=== PATIENT | male | born 1965 | race Caucasian/White ===

== ENCOUNTER 2019-03-23 16:25 | Emergency (ER) | payer BC, MEDICARE, OTHER ==
--- NOTE | 2019-03-23 16:49 | EDM.PDOC ---
ED HPI GENERAL MEDICAL PROBLEM - General Chief Complaint: Burn Stated Complaint: BURN TO L FOOT Time Seen by Provider: 03/23/19 16:30 Source of Information: Reports: Patient History Limitations: Reports: No Limitations - History of Present Illness INITIAL COMMENTS - FREE TEXT/NARRATIVE: 53 YO WM presents to ER with pain to left foot from steam related burn. Pt reports he was using a steam hammer operator and accidentally used it across his left foot. Pt reports he was wearing boots but the hot water got through is shoe and caused a burn to his toes and distal portion of his metacarpals on the dorsal side of the foot. Pt denies any other injury. Pt with history of kidney transplant on antirejection medication. Onset: Today Duration: Hour(s): (1) Location: Reports: Lower Extremity, Left Quality: Reports: Burning Severity: Moderate Improves with: Reports: None Worsens with: Reports: None Associated Symptoms: Reports: No Other Symptoms Treatments CHICKEN SEXER: Reports: NSAIDS - Related Data Home Meds: Home Meds Silver Sulfadiazine [Silvadene 1% Cream 25 GM] 1 applic TOP TID #25 tube [Rx] Sulfamethoxazole/Trimethoprim [Septra DS] 1 each PO BID #16 tab 03/23/19 [Rx] ED ROS GENERAL - Review of Systems Review Of Systems: See Below Constitutional: Reports: No Symptoms HEENT: Reports: No Symptoms Respiratory: Reports: No Symptoms Cardiovascular: Reports: No Symptoms Endocrine: Reports: No Symptoms GI/Abdominal: Reports: No Symptoms : Reports: No Symptoms Musculoskeletal: Reports: No Symptoms Skin: Reports: Burn(s) (2nd degree burn to dorsal aspect of distal left foot and toes) Neurological: Reports: No Symptoms Psychiatric: Reports: No Symptoms Hematologic/Lymphatic: Reports: No Symptoms Immunologic: Reports: No Symptoms ED EXAM, BURN/SMOKE INHALATION - Physical Exam Exam: See Below Exam Limited By: No Limitations General Appearance: Alert, WD/WN, No Apparent Distress Head: No Symptoms Neck: No Symptoms Respiratory: No Respiratory Distress, Lungs Clear, Normal Breath Sounds, No Accessory Muscle Use, Chest Non-Tender Cardiovascular: Normal Peripheral Pulses, Regular Rate, Rhythm, No Edema, No Gallop, No JVD, No Murmur, No Rub GI/Abdominal: Normal Bowel Sounds, Soft, Non-Tender, No Organomegaly, No Distention, No Abnormal Bruit, No Mass Back Exam: Normal Inspection, Full Range of Motion, NT Extremities: Leg Pain Neurological: Alert, Oriented, CN II-XII Intact, Normal Cognition, Normal Gait, Normal Reflexes, No Motor/Sensory Deficits Psychiatric: Normal Affect, Normal Mood Skin Exam: Erythema, Increased Warmth, Other (2nd degree burn to dorsal aspect of distal left foot and toes) Lymphatic: No Adenopathy Departure - Departure Time of Disposition: 17:00 Disposition: Home, Self-Care 01 Condition: Good Clinical Impression: Second degree burn of left foot Qualifiers: Encounter type: initial encounter Qualified Code(s): T25.222A - Burn of second degree of left foot, initial encounter - Discharge Information Prescriptions: Silver Sulfadiazine [Silvadene 1% Cream 25 GM] 1 applic TOP TID #25 tube Sulfamethoxazole/Trimethoprim [Septra DS] 1 each PO BID #16 tab Instructions: Burn Care, Adult Referrals: Tanya Dockery MD [Physician] - Forms: ED Department Discharge Additional Instructions: 1. discharge home 2. wound care instructions given- 3. hydrocodone 10/325 #6 1 every 6 hours as needed for pain 4. septra DS 1 tablet twice day x 10 days 5. silvadene to burn 6. follow up this week for recheck in clinic with PCP 7. return to ER for worsening symptoms - Assessment/Plan Assessment:: 1. 2nd degree burn to dorsal aspect of distal left foot and toes Plan: 1. discharge home 2. wound care instructions given- 3. hydrocodone 10/325 #6 1 every 6 hours as needed for pain 4. septra DS 1 tablet twice day x 10 days 5. silvadene to burn 6. follow up this week for recheck in clinic with PCP 7. return to ER for worsening symptoms
[2019-03-23] MEDS ORDERED: Sulfamethoxazole/Trimethoprim 800-160 MG Tab PO ONE (16:50)
[2019-03-23] MEDS ORDERED: Acetaminophen/HYDROcodone 325-10 MG Tab PO ONE (16:50)
[2019-03-23] MEDS ORDERED: Silver Sulfadiazine 1% Crm 50 GM Tube TOP ONE (16:53)
== END 2019-03-23 17:35 | disposition home or self-care (01) ==
LOC: KA.ED 16:25
DX: T25.222A Burn of second degree of left foot, initial encounter (principal); T25.232A Burn of second degree of left toe(s) (nail), initial encounter; T31.0 Burns involving less than 10% of body surface; X13.1XXA Other contact with steam and other hot vapors, initial encounter
CPT/HCPCS: 16020; 99283; A9270

== ENCOUNTER 2020-05-01 13:00 | Emergency (ER) | payer MEDICARE ==
--- NOTE | 2020-05-01 13:13 | EDM.PDOC ---
ED HPI GENERAL MEDICAL PROBLEM - General Chief Complaint: Gastrointestinal Problem Stated Complaint: NOT FEELING WELL Time Seen by Provider: 05/01/20 13:13 Source of Information: Reports: Patient History Limitations: Reports: No Limitations - History of Present Illness INITIAL COMMENTS - FREE TEXT/NARRATIVE: Camilo, 54-year-old male, presents today with general malaise weakness a ccompanied with watery stools. He had been seen on 08 April for a routine DOT physical and was found to be hypertensive not allowing completion of physical. At that time he was started on lisinopril hydrochlorothiazide at and was followed up on the at which time he received temporary clearance of his DOT with medication at that time changed to 40 of lisinopril and 25 of hydrochlorothiazide. He continued his Prograf 1 mg twice a day and his sildenafil citrate 100 mg as needed. He had had low-grade fevers and watery stools the past couple days with worsening of his malaise. He denies chest pain, shortness of breath but does have some cough. He denies abdominal pain, denies cramping, stating no change when experiencing a loose stool. Is unsure of the appearance of his urine as he is been in a seated position secondary of the watery stools and has had a mixture with stool unable to accurately visualize. He has had no issues with his liver transplant over the past 7 years with no alcohol no smoking. He has had no edema, no claudication but noted weakness in general, as well as denying any edema to the lower extremities. Has not been checking his blood sugars but did stop taking his metformin due to personal symptoms reasons. He underwent influenza testing which was negative on the as well as a COVID-19 screening which unfortunately cannot be traced down at the state at this time. We will likely be repeating that test for a rapid result secondary of his worsening symptoms and overall symptoms of illness. It is noted that he has not had his yearly [facility] follow-up secondary of COVID. He speaks of his significant other also feeling illness, he also underwent COVID screening but has not received results either. Onset: Gradual Duration: Day(s): Location: Reports: Abdomen, Generalized Generalized Pain Score (Numeric/FACES): 4 - Related Data Allergies Allergy/AdvReac Type Severity Reaction Status Date / Time No Known Drug Allergies Allergy Cannot Verified 03/24/19 19:21 Remember Home Meds: Home Meds Tacrolimus [Prograf] 1 mg PO BID 03/24/19 [History] Sildenafil [Viagra] 100 mg PO BEDTIME PRN 05/01/20 [History] hydroCHLOROthiazide [Hydrochlorothiazide] 25 mg PO DAILY 05/01/20 [History] lisinopriL [Lisinopril] 40 mg PO DAILY 05/01/20 [History] Past Medical History Cardiovascular History: Reports: Hypertension Respiratory History: Reports: None Gastrointestinal History: Reports: Other (See Below) (Previous C. difficile) Genitourinary History: Reports: Renal Disease Neurological History: Reports: None Psychiatric History: Reports: None Endocrine/Metabolic History: Reports: Diabetes, Type II Hematologic History: Reports: None Immunologic History: Reports: Solid Organ Transplant (Liver transplant 2012) Dermatologic History: Reports: Eczema - Infectious Disease History Infectious Disease History: Reports: Chicken Pox, Hepatitis C, Shingles - Past Surgical History GI Surgical History: Reports: Other (See Below) Other GI Surgeries/Procedures: LIVER TRANSPLANT IN 2012 Social & Family History - Family History Family Medical History: Noncontributory - Tobacco Use Tobacco Use Within Last Twelve Months: No Smoking Cessation Information Provided To Patient: No Second Hand Smoke Exposure: Yes Second Hand Smoke Education Provided: No - Living Situation & Occupation Living situation: Reports: with Significant Other Occupation: Employed ED ROS GENERAL - Review of Systems Review Of Systems: Comprehensive ROS is negative, except as noted in HPI. ED EXAM, GENERAL - Physical Exam Exam: See Below Free Text/Narrative:: Alert oriented x3 in general malaise type distress. HEENT shows some eczema to the forehead and the bridge of the nose with no other deformity. PERRLA no icterus no injection. Shows no evidence of photophobia. Neck is soft supple no rigidity generalized muscle aches to the neck shoulders and upper extremities. Thorax has fine rhonchi with a cough induced by deep inspiration and exhalation. Cardiac is S1-S2 I do not appreciate any murmur. Radial pulse correlates with apical heart rate. No tenderness to the chest wall. Bowel sounds are present, no mass no tenderness to palpation, no rebound tenderness. There is no pressure or pain over the urinary bladder. No flank pain to percussion but generalized muscle aches to motion and deep palpation of the chest wall and flank region. rectal was deferred. He moves extremities about with no difficulty there are no rashes, no edema with warm dry skin distally. Was advised of foregoing tests of blood work including a repeat of his COVID 19 as well as needing a stool sample in the event next bowel movement for C. difficile test as well as a urinalysis. Course - Vital Signs Last Recorded V/S: Last Vital Signs Temp 39.4 C H 05/01/20 20:30 Pulse 79 05/01/20 18:00 Resp 24 H 05/01/20 18:00 BP 127/86 05/01/20 18:00 Pulse Ox 94 L 05/01/20 18:00 - Orders/Labs/Meds Orders: Active Orders 24 hr Category Date Time Status Bladder Scan [RC] ASDIRECTED Care 05/01/20 17:25 Active Insert Urinary Catheter [OM.PC] Q24H Care 05/01/20 17:35 Ordered Peripheral IV Care [RC] . DIRECTED Care 05/01/20 13:22 Active Peripheral IV Care [RC] . DIRECTED Care 05/01/20 15:37 Active Urinary Catheter Assessment [RC] ASDIRECTED Care 05/01/20 18:08 Active Sodium Chloride 0.9% [Normal Saline] 1,000 ml Med 05/01/20 19:45 Active IV ASDIRECTED Sodium Chloride 0.9% [Saline Flush] Med 05/01/20 13:22 Active 10 ml FLUSH Q8HR PRN Sodium Chloride 0.9% [Saline Flush] Med 05/01/20 15:37 Active 10 ml FLUSH Q8HR PRN Peripheral IV Insertion Adult [OM.PC] Routine Oth 05/01/20 13:22 Ordered Peripheral IV Insertion Adult [OM.PC] Routine Oth 05/01/20 15:37 Ordered Medication Orders Sodium Chloride (Normal Saline) 1,000 mls @ 250 mls/hr IV ASDIRECTED WESLEY Sodium Chloride (Saline Flush) 10 ml FLUSH Q8HR PRN PRN Reason: keep vein open Sodium Chloride (Saline Flush) 10 ml FLUSH Q8HR PRN PRN Reason: keep vein open Labs: Laboratory Tests 05/01/20 05/01/20 05/01/20 Range/Units 13:21 13:30 13:50 WBC (5.00-10.00) 10^3/uL RBC (4.50-6.00) 10^6/uL Hgb (13.0-17.0) g/dL Hct (40.0-52.0) % MCV (82.0-92.0) fL MCH (27.0-31.0) pg MCHC (32.0-36.0) g/dL RDW (11.5-14.5) % Plt Count (150-400) 10^3/uL MPV (7.4-10.4) fL Immature Gran % (Auto) (0.0-5.0) % Neut % (Auto) (50.0-70.0) % Lymph % (Auto) (20.0-40.0) % [place] % (Auto) (2.0-8.0) % Eos % (Auto) (1.0-3.0) % Baso % (Auto) (0.0-1.0) % Neut # (Auto) (2.50-7.00) 10^3/uL Lymph # (Auto) (1.00-4.00) 10^3/uL Crosby # (Auto) (0.10-0.80) 10^3/uL Eos # (Auto) (0.10-0.30) 10^3/uL Baso # (Auto) (0.00-0.10) 10^3/uL Immature Gran # (Auto) (0.00-0.50) 10^3/uL Sodium 130 L (136-145) mmol/L Potassium 5.4 H (3.3-5.3) mmol/L Chloride 97 L (98-115) mmol/L Carbon Dioxide 17.0 L (21.0-32.0) mmol/L Anion Gap 21.4 H (5-15) mmol/L BUN 86 H* D (6-25) mg/dL Creatinine 2.98 H D (0.51-1.17) mg/dL Est Cr Clr Drug Dosing 33.48 mL/min Estimated GFR (MDRD) 22 mL/min Glucose 121 H (75 - 99) mg/dL Calcium 8.5 L (8.7-10.3) mg/dL Total Bilirubin 0.5 (0.2-1.0) mg/dL AST 43 H (15-37) U/L ALT 57 (12-78) U/L Alkaline Phosphatase 77 (46-116) IU/L Total Protein 9.4 H (6.4-8.2) g/dL Albumin 3.64 (3.00-4.80) g/dL Specimen Type Urincc Urine Color Yellow (YELLOW) Urine Appearance Clear (CLEAR) Urine pH 5.5 (5.0-9.0) Ur Specific [place] 1.025 (1.005-1.030) Urine Protein 100 H (NEGATIVE) mg/dL Urine Glucose (UA) Negative (NEGATIVE) mg/dL Urine Ketones Negative (NEGATIVE) mg/dL Urine Occult Blood Moderate H (NEGATIVE) Urine Nitrite Negative (NEGATIVE) Urine Bilirubin Negative (NEGATIVE) Urine Urobilinogen 0.2 (0.2-1.0) E.U./dL Ur Leukocyte Esterase Negative (NEGATIVE) Urine RBC 5-10 H (0-5) /HPF Urine WBC 0-5 (0-5) /HPF Ur Epithelial Cells Occasional /LPF Amorphous Sediment Few (0/HPF) /HPF Urine Bacteria Few (NONE TO FEW) /HPF SARS CoV-2 RNA Rapid CHER Positive H (NEGATIVE) 05/01/20 Range/Units 13:50 WBC 4.49 L (5.00-10.00) 10^3/uL RBC 4.76 (4.50-6.00) 10^6/uL Hgb 14.9 (13.0-17.0) g/dL Hct 42.7 (40.0-52.0) % MCV 89.7 (82.0-92.0) fL MCH 31.3 H (27.0-31.0) pg MCHC 34.9 (32.0-36.0) g/dL RDW 12.6 (11.5-14.5) % Plt Count 85 L (150-400) 10^3/uL MPV 9.7 (7.4-10.4) fL Immature Gran % (Auto) 0.2 (0.0-5.0) % Neut % (Auto) 68.0 (50.0-70.0) % Lymph % (Auto) 25.8 (20.0-40.0) % Crosby % (Auto) 5.6 (2.0-8.0) % Eos % (Auto) 0.4 L (1.0-3.0) % Baso % (Auto) 0.0 (0.0-1.0) % Neut # (Auto) 3.05 (2.50-7.00) 10^3/uL Lymph # (Auto) 1.16 (1.00-4.00) 10^3/uL Crosby # (Auto) 0.25 (0.10-0.80) 10^3/uL Eos # (Auto) 0.02 L (0.10-0.30) 10^3/uL Baso # (Auto) 0.00 (0.00-0.10) 10^3/uL Immature Gran # (Auto) 0.01 (0.00-0.50) 10^3/uL Sodium (136-145) mmol/L Potassium (3.3-5.3) mmol/L Chloride (98-115) mmol/L Carbon Dioxide (21.0-32.0) mmol/L Anion Gap (5-15) mmol/L BUN (6-25) mg/dL Creatinine (0.51-1.17) mg/dL Est Cr Clr Drug Dosing mL/min Estimated GFR (MDRD) mL/min Glucose (75 - 99) mg/dL Calcium (8.7-10.3) mg/dL Total Bilirubin (0.2-1.0) mg/dL AST (15-37) U/L ALT (12-78) U/L Alkaline Phosphatase (46-116) IU/L Total Protein (6.4-8.2) g/dL Albumin (3.00-4.80) g/dL Specimen Type Urine Color (YELLOW) Urine Appearance (CLEAR) Urine pH (5.0-9.0) Ur Specific [place] (1.005-1.030) Urine Protein (NEGATIVE) mg/dL Urine Glucose (UA) (NEGATIVE) mg/dL Urine Ketones (NEGATIVE) mg/dL Urine Occult Blood (NEGATIVE) Urine Nitrite (NEGATIVE) Urine Bilirubin (NEGATIVE) Urine Urobilinogen (0.2-1.0) E.U./dL Ur Leukocyte Esterase (NEGATIVE) Urine RBC (0-5) /HPF Urine WBC (0-5) /HPF Ur Epithelial Cells /LPF Amorphous Sediment (0/HPF) /HPF Urine Bacteria (NONE TO FEW) /HPF SARS CoV-2 RNA Rapid CHER (NEGATIVE) Meds: Medications Generic Name Dose Route Start Last Admin Trade Name Marisol PRN Reason Stop Dose Admin Sodium Chloride 1,000 mls @ 250 mls/hr 05/01/20 19:45 Normal Saline IV ASDIRECTED WESLEY Sodium Chloride 10 ml 05/01/20 13:22 Saline Flush FLUSH Q8HR PRN keep vein open Sodium Chloride 10 ml 05/01/20 15:37 Saline Flush FLUSH Q8HR PRN keep vein open Discontinued Medications Generic Name Dose Route Start Last Admin Trade Name Freq PRN Reason Stop Dose Admin Sodium Chloride 1,000 mls @ 999 mls/hr 05/01/20 13:22 05/01/20 14:00 Normal Saline IV 05/01/20 14:22 999 mls/hr .BOLUS ONE Administration Sodium Chloride 1,000 mls @ 999 mls/hr 05/01/20 15:11 05/01/20 15:28 Normal Saline IV 05/01/20 16:11 999 mls/hr .BOLUS ONE Administration Sodium Chloride 1,000 mls @ 999 mls/hr 05/01/20 15:37 05/01/20 16:00 Normal Saline IV 05/01/20 16:37 999 mls/hr .BOLUS ONE Administration Morphine Sulfate 2 mg 05/01/20 23:54 Morphine IVPUSH 05/01/20 23:55 ONETIME ONE - Re-Assessments/Exams Free Text/Narrative Re-Assessment/Exam: 05/01/20 15:47 1515 hrs. contact [facility] 1 call with nurse Owen given report. [address] Rodriguez was given detailed report on the status of Mr. Smiley and his gradual demise over the past few days with positive COVID testing today. He feels fluid hydration is the primary need at this time and recommends that we IV hydration and reassessment. Declined the transfer secondary of no supplemental oxygen demand with no respiratory distress/compromise. Dr. Tanya Sloan is advised, of the situation that we will not be transferring at this time and will maintain IV hydration with reassessment. Discussed that we have no bed option and further assessment and re-contact with [facility] will be done. 05/01/20 20:14 3 L of fluid have infused and we were able to obtain 500mL concentrated urine per void. Camilo states he feels no improvement in his overall status with cough becoming slightly more prominent. Temperature is fluctuated between 98.8 and 100.2. He states his breathing sensation has changed slightly, with a less dry cough at this time. 05/01/20 20:29 Fourth liter fluid hung at a rate of 250/h. Breath sounds auscultate overall clear but his cough is more prominent and does not sound as dry. Temperature rechecked to be 103.0. States he feels pressure with his breathing, denying any chest pain nor abdominal pain. He has not had a loose stool since arrival, urine output is only at 500 mL. Advised we are still looking for a bed capable of taking COVID positive. 05/01/20 22:50 Resting comfortably on his side. Erroneous blood pressure readings secondary of cough being compressed in his position. Fluid continues at 250/h. Breath sounds are clear but his cough does sound wetter than it had previously. He denies any chest pain. Awaiting ambulance return from [facility] to transport Mr. Smiley to the COVID care unit. Free Text/Narrative Re-Assessment/Exam: 05/01/20 21:37 Contact [facility] [address] Miguel returning a call excepting the patient at [phone]. Will be transferred via ambulance once room assignment and paperwork has been completed. Free Text/Narrative Re-Assessment/Exam: 05/02/20 00:24 2mg morphine given IV at 1201 pre myself. Departure - Departure Time of Disposition: 00:10 Disposition: DC/Tfer to Acute Hospital 02 Condition: Good, Fair Clinical Impression: Malaise and fatigue, COVID-19 in immunocompromised patient, History of liver transplant, Immunocompromised state due to drug therapy, Cough, Fever and chills, Diarrhea - Discharge Information Referrals: Tanya Dockery MD [Primary Care Provider] - Forms: ED Department Discharge Additional Instructions: Will be transported by ground ambulance, [facility], [facility] as soon as possible Sepsis Event Note (ED) - Focused Exam Vital Signs: Vital Signs Temp Pulse Resp BP Pulse Ox 05/01/20 20:30 39.4 C H 05/01/20 18:00 38.2 C H 79 24 H 127/86 94 L 05/01/20 17:11 38.2 C H 80 24 H 124/79 94 L 05/01/20 16:00 80 24 H 110/70 95 05/01/20 15:00 86 24 H 124/75 94 L 05/01/20 14:29 87 24 H 117/76 95 05/01/20 14:00 85 28 H 109/76 96 05/01/20 13:30 88 26 H 106/74 95 05/01/20 13:10 37.2 C 88 20 110/71 95 - Problem List & Annotations (1) Diarrhea SNOMED Code(s): 91624190 Code(s): R19.7 - DIARRHEA, UNSPECIFIED Status: Acute Priority: High Current Visit: Yes Qualifiers: Diarrhea type: unspecified type Qualified Code(s): R19.7 - Diarrhea, unspecified (2) Malaise and fatigue SNOMED Code(s): 388306557 Code(s): R53.81 - OTHER MALAISE; R53.83 - OTHER FATIGUE Status: Acute Priority: High Current Visit: Yes (3) History of fever SNOMED Code(s): 364828030 Code(s): Z87.898 - PERSONAL HISTORY OF OTHER SPECIFIED CONDITIONS Status: Acute Priority: High Current Visit: Yes (4) History of liver transplant SNOMED Code(s): 498536133 Code(s): Z94.4 - LIVER TRANSPLANT STATUS Status: Acute Current Visit: Yes (5) Immunocompromised state due to drug therapy SNOMED Code(s): 230402290 Code(s): Z79.899 - OTHER RECRUIT INSTRUCTOR (CURRENT) DRUG THERAPY Status: Acute Priority: High Current Visit: Yes (6) COVID-19 in immunocompromised patient SNOMED Code(s): 620474128, 557418324 Code(s): U07.1 - COVID-19; D89.9 - DISORDER INVOLVING THE IMMUNE MECHANISM, UNSPECIFIED Status: Acute Priority: High Current Visit: Yes (7) Cough SNOMED Code(s): 65434563 Code(s): R05 - COUGH Status: Acute Priority: Medium Current Visit: Yes (8) Fever and chills SNOMED Code(s): 446354238 Code(s): R50.9 - FEVER, UNSPECIFIED Status: Acute Priority: High Current Visit: Yes - Problem List Review Problem List Initiated/Reviewed/Updated: Yes - My Orders Last 24 Hours: My Active Orders 05/01/20 13:22 Peripheral IV Care [RC] . DIRECTED Sodium Chloride 0.9% [Saline Flush] 10 ml FLUSH Q8HR PRN Peripheral IV Insertion Adult [OM.PC] Routine 05/01/20 15:37 Peripheral IV Care [RC] . DIRECTED Sodium Chloride 0.9% [Saline Flush] 10 ml FLUSH Q8HR PRN Peripheral IV Insertion Adult [OM.PC] Routine 05/01/20 17:25 Bladder Scan [RC] ASDIRECTED 05/01/20 17:35 Insert Urinary Catheter [OM.PC] Q24H 05/01/20 18:08 Urinary Catheter Assessment [RC] ASDIRECTED 05/01/20 19:45 Sodium Chloride 0.9% [Normal Saline] 1,000 ml IV ASDIRECTED - Assessment/Plan Last 24 Hours: My Active Orders 05/01/20 13:22 Peripheral IV Care [RC] . DIRECTED Sodium Chloride 0.9% [Saline Flush] 10 ml FLUSH Q8HR PRN Peripheral IV Insertion Adult [OM.PC] Routine 05/01/20 15:37 Peripheral IV Care [RC] . DIRECTED Sodium Chloride 0.9% [Saline Flush] 10 ml FLUSH Q8HR PRN Peripheral IV Insertion Adult [OM.PC] Routine 05/01/20 17:25 Bladder Scan [RC] ASDIRECTED 05/01/20 17:35 Insert Urinary Catheter [OM.PC] Q24H 05/01/20 18:08 Urinary Catheter Assessment [RC] ASDIRECTED 05/01/20 19:45 Sodium Chloride 0.9% [Normal Saline] 1,000 ml IV ASDIRECTED [facility]
[2020-05-01] MEDS ORDERED: Sodium Chloride 0.9% 1,000 ML IV ONE ×3 (13:22→15:37)
[2020-05-01] MEDS ORDERED: Sodium Chloride 0.9% 10 ML Syringe FLUSH PRN ×2 (13:22→15:37)
[2020-05-01 14:33] LABS: ANION GAP 21.4 mmol/L (5-15)
--- NOTE | 2020-05-01 15:46 | CR ---
[id number] RAD/RAD Chest PA or AP 1V EXAM: SINGLE VIEW CHEST. INDICATION: DIFFICULTY BREATHING COMPARISON: CORRELATION IS MADE WITH OCTOBER 03, 2019 FINDINGS: Chronic pleural-parenchymal changes are seen on the right The lungs otherwise are clear The cardiac silhouette is stable IMPRESSION: NO CHANGE SINCE LAST EXAM Bolivar Hernandez MD 05/01/20 [id number] Thank you for allowing us to participate in the care of your patient.
[2020-05-01] MEDS ORDERED: Sodium Chloride 0.9% 1,000 ML IV SCH (19:45)
[2020-05-01] MEDS ORDERED: Morphine 2 MG/ML SYRINGE IVPUSH ONE (23:54)
== END 2020-05-02 00:30 ==
LOC: KA.ED 13:00
DX: U07.1 COVID-19 (principal); R53.81 Other malaise; R53.83 Other fatigue; D89.9 Disorder involving the immune mechanism, unspecified; E11.9 Type 2 diabetes mellitus without complications; I10 Essential (primary) hypertension; Z77.22 Contact with and (suspected) exposure to environmental tobacco smoke (acute) (chronic); Z94.4 Liver transplant status; Z79.899 Other long term (current) drug therapy
CPT/HCPCS: 36415; 51701; 71045; 80053; 81001; 85025; 96361; 96374; 99284; 99285-25; J2270; J7030; U0002

== ENCOUNTER 2025-01-16 13:29 | Emergency (ER) | payer MEDICARE ==
[2025-01-16 13:44] LABS: BASOPHILS ABSOLUTE AUTO 0.04 10^3/uL (0.00-0.10); BASOPHILS PERCENT AUTO 0.6 % (0.0-1.0); EOSINOPHILS ABSOLUTE AUTO 0.17 10^3/uL (0.10-0.30); EOSINOPHILS PERCENT AUTO 2.5 % (1.0-3.0); HEMATOCRIT 40.7 % (40.0-52.0); HEMOGLOBIN 14.3 g/dL (13.0-17.0); IMMATURE GRAN ABSOLUTE AUTO 0.01 10^3/uL (0.00-0.04); IMMATURE GRAN PERCENT AUTO 0.1 % (0.0-0.4); LYMPHOCYTES ABSOLUTE AUTO 2.55 10^3/uL (1.00-4.00); LYMPHOCYTES PERCENT AUTO 37.2 % (20.0-40.0); MEAN CORPUSCULAR HEMOGLOBIN 31.3 pg (27.0-31.0); MEAN CORPUSCULAR HGB CONC 35.1 g/dL (32.0-36.0); MEAN CORPUSCULAR VOLUME 89.1 fL (82.0-92.0); MEAN PLATELET VOLUME 8.8 fL (7.4-10.4); MONOCYTES ABSOLUTE AUTO 0.38 10^3/uL (0.10-0.80); MONOCYTES PERCENT AUTO 5.5 % (2.0-8.0); NEUTROPHILS PERCENT AUTO 54.1 % (50.0-70.0); PLATELET COUNT,PLT 134 10^3/uL (150-400); RED BLOOD CELL COUNT 4.57 10^6/uL (4.50-6.00); RED CELL DISTRIBUTION WIDTH 13.7 % (11.5-14.5); WHITE BLOOD CELL COUNT,WBC 6.85 10^3/uL (5.00-10.00)
[2025-01-16 14:00] LABS: ALBUMIN 2.88 g/dL (3.40-5.00); ANION GAP 18.8 mmol/L (5-15); BILIRUBIN TOTAL 1.1 mg/dL (0.2-1.0); C-REACTIVE PROTEIN 0.54 mg/dL (0.00-0.50); CALCIUM 8.6 mg/dL (8.7-10.3); CARBON DIOXIDE,CO2 20.8 mmol/L (21.0-32.0); CREATININE 2.48 mg/dL (0.51-1.17); EST CRCL DRUG DOSING (CG) 37.86 mL/min; POTASSIUM,K 3.6 mmol/L (3.5-5.1); PROTEIN TOTAL,TP 7.6 g/dL (6.4-8.2)
[2025-01-16] MEDS: Sodium Chloride 0.9% 1,000 ML IV ONE (14:16)
== END 2025-01-16 16:23 | disposition home or self-care (01) ==
LOC: KA.ED 13:29
DX: I95.9 Hypotension, unspecified (principal); E11.9 Type 2 diabetes mellitus without complications; Z79.899 Other long term (current) drug therapy; Z79.82 Long term (current) use of aspirin; Z79.84 Long term (current) use of oral hypoglycemic drugs
CPT/HCPCS: 36415; 71045; 80053; 83605; 84484; 85025; 86140; 96360; 96361; 99285-25; J7030

== ENCOUNTER 2025-02-12 12:26 | Emergency (ER) | payer MEDICARE ==
[2025-02-12 13:01] LABS: BASOPHILS ABSOLUTE AUTO 0.02 10^3/uL (0.00-0.10); BASOPHILS PERCENT AUTO 0.3 % (0.0-1.0); EOSINOPHILS ABSOLUTE AUTO 0.22 10^3/uL (0.10-0.30); EOSINOPHILS PERCENT AUTO 2.9 % (1.0-3.0); IMMATURE GRAN ABSOLUTE AUTO 0.02 10^3/uL (0.00-0.04); IMMATURE GRAN PERCENT AUTO 0.3 % (0.0-0.4); LYMPHOCYTES ABSOLUTE AUTO 2.49 10^3/uL (1.00-4.00); LYMPHOCYTES PERCENT AUTO 33.2 % (20.0-40.0); MEAN PLATELET VOLUME 9.2 fL (7.4-10.4); MONOCYTES ABSOLUTE AUTO 0.47 10^3/uL (0.10-0.80); MONOCYTES PERCENT AUTO 6.3 % (2.0-8.0); NEUTROPHILS ABSOLUTE AUTO 4.29 10^3/uL (2.50-7.00); NEUTROPHILS PERCENT AUTO 57.0 % (50.0-70.0); PLATELET COUNT,PLT 131 10^3/uL (150-400); RED BLOOD CELL COUNT 3.84 10^6/uL (4.50-6.00); RED CELL DISTRIBUTION WIDTH 13.2 % (11.5-14.5); WHITE BLOOD CELL COUNT,WBC 7.51 10^3/uL (5.00-10.00)
[2025-02-12 13:15] LABS: ALANINE AMINOTRANSFERASE,ALT 36.0 U/L (14-63); ASPARTATE AMNIOTRANSFERASE,AST 20.0 U/L (15-37); BILIRUBIN TOTAL 0.9 mg/dL (0.2-1.0); CARBON DIOXIDE,CO2 22.7 mmol/L (21.0-32.0); CHLORIDE,CL 102.0 mmol/L (98-107); CREATININE 2.88 mg/dL (0.51-1.17); EST CRCL DRUG DOSING (CG) 32.6 mL/min; GLUCOSE RANDOM 184.0 mg/dL (70-140); POTASSIUM,K 5.0 mmol/L (3.5-5.1); PROTEIN TOTAL,TP 8.0 g/dL (6.4-8.2); SODIUM,NA 136.0 mmol/L (136-145)
[2025-02-12 13:18] LABS: BLOOD UREA NITROGEN,BUN 54.0 mg/dL (7-18); ESTIMATED GFR 24.0 mL/min (>=60)
== END 2025-02-12 14:09 | disposition home or self-care (01) ==
LOC: KA.ED 12:31
DX: R42 Dizziness and giddiness (principal); R79.89 Other specified abnormal findings of blood chemistry; I10 Essential (primary) hypertension; E11.9 Type 2 diabetes mellitus without complications; Z79.82 Long term (current) use of aspirin; Z79.899 Other long term (current) drug therapy
CPT/HCPCS: 80053; 85025; 96360; 99284-25; J7030